=== PATIENT | female | born 1995 | race Caucasian/White ===

== ENCOUNTER 2019-12-19 14:07 | Emergency (ER) | payer OTHER, SELFPAY ==
[2019-12-19 14:22] VITALS: BP 121/83; PULSE 99; RESP 20; TEMP 36.8; O2SAT 100
--- NOTE | 2019-12-19 14:22 | ED.URI ---
HPI - URI/Sore Throat General Chief Complaint: Upper Respiratory Infection Stated Complaint: sore throat/sob/dizzy/ear pn Time Seen by Provider: 12/19/19 14:39 Source: patient and RN notes reviewed Mode of arrival: ambulatory Limitations: no limitations History of Present Illness HPI Narrative: A 24 y/o female, who is a nonsmoker and nondrinker, presents to the with multiple, worsening, URI symptoms for the past 5 days. She reports associated nasal congestion, sore throat,and ear ache for the past 5 days. She states that she has been having SOB, deacreased intake, and has been losing weight for the past couple weeks. She notes that she did have a fever on Wednesday and Wednesday, but it has since resolved. She denies any foreign or domestic travel. She also denies any rhinorrhea, ear drainage, wheezes, or any other medical complaints at this time. MD elicited complaint: other (Mutliple) Onset (ago): day(s) (5) Consistency: progressively worsening Associated symptoms: fever (101 - resolved 3 days ago), nasal congestion, sore throat, shortness of breath, ear pain and other (decreased intake and weight loss) Related Data Allergies Allergy/AdvReac Type Severity Reaction Status Date / Time No Known Allergies Allergy Verified 12/19/19 14:32 Review of Systems Review of Systems: Narrative: General/Constitutional: Reports a fever of 101 that resolved 3 days ago, decreased intake, and weight loss. Eyes: N0: Redness,discharge Ears/Nose/Throat: No: Epistaxis,ear discharge, rhinorrhea. Reports nasal congestion, sore throat, and a ear ache. Respiratory: Denies: Hemoptysis or wheezes. Reports SOB. Gastrointestinal: No Vomiting, Bleeding-rectal Skin: No Lumps, eruption Neurologic: No Focal Weakness,Sz Hematologic: Denies: Petechiae/Purpura Psychiatric: No: Suicida ideationl All Other Systems: Reviewed and Negative FOR[facility]LY [facility] Past Medical History Medical History (Updated 12/20/19 @ 00:00 by Darius Demarco) Healthy female Surgical History Surgical History (Updated 12/19/19 @ 14:23 by Osito Kebede) History of placement of ear tubes Family History Family History Grandparent Family history of hypercholesterolemia Social History Social History Smoking status: Never smoker Alcohol intake: never Comments At time of signature, agree with nursing past medical, surgical, social and family history. There is no relevant family history pertinent to the presenting complaint Exam Narrative: Exam Narrative: General Appearance: Well appearing, Well nourished EYE: PERRLA, Conjunctiva clear Ears: Auditory canal normal, TM normal Nose: Rhinorrhea, Mucousal erythema Mouth/Throat: MM moist, Uvula midline, Pharyngeal erythema Neck: Supple, No adenopathy Respiratory: No respiratory distress, Breath sounds equal, Clear to auscultation Cardiovascular: RRR, No JVD Musculoskeletal: Non tender, Normal strength Skin: Warm, Dry Neurological: A&O x3, CN II-XII intact Psychiatric: Normal mood, Normal affect Course Vital Signs Vital signs: Vital Signs Temperature 98.2 F 12/19/19 14:22 Pulse Rate 99 12/19/19 14:22 Respiratory Rate 20 12/19/19 14:22 Blood Pressure 121/83 12/19/19 14:22 Pulse Oximetry 100 12/19/19 14:22 Temperature 98.2 F 12/19/19 14:22 Pulse Rate 99 12/19/19 14:22 Respiratory Rate 20 12/19/19 14:22 Blood Pressure 121/83 12/19/19 14:22 Pulse Oximetry 100 12/19/19 14:22 MDM - URI/Sore Throat Lab Data Labs: Influenza A Screen Negative Reference Range: Negative Influenza B Screen Negative Reference Range: Negative Strep Screen Presumptive Negative *(Reference Range: Negative)* Discharge Plan Discharge Clinical Impression: Influenza-like illness Patient Disposition: Home, Self-Care Condition: Stable Instructio
== END 2019-12-19 15:06 | disposition home or self-care (01) ==
PROVIDERS: Emergency Provider Emergency Medicine
DX: J02.9 Acute pharyngitis, unspecified (principal); R06.02 Shortness of breath; R42 Dizziness and giddiness; J45.990 Exercise induced bronchospasm
CPT/HCPCS: 87081; 87804; 87880; 99213; G0463